=== PATIENT | female | born 1955 | race Caucasian/White ===

== ENCOUNTER 2016-10-05 12:07 | Emergency (ER) | payer MEDICARE, OTHER ==
[~2016-10-05] VITALS: Ht 152.4 cm; Wt 75.0 kg
[2016-10-05 12:11] VITALS: Ht 152.4 cm; Wt 75.0 kg
[2016-10-05] MEDS ORDERED: morphine 2 MG INJ IV ONE (13:00)
[2016-10-05 13:26] LABS: BASOPHIL # 0.1 10^3/ul (0.0-0.1); BASOPHILS % 0.6 % (0.0-2.0); EOSINOPHILS # 0.2 10^3/ul (0.0-0.5); EOSINOPHILS % 2.9 % (0.0-7.0); HEMATOCRIT 30.9 % (37.0-47.0); HEMOGLOBIN 9.4 g/dl (12.0-16.0); LYMPHOCYTES # 1.8 10^3/ul (0.8-2.9); LYMPHOCYTES % 21.7 % (15.0-51.0); MEAN CORPUSCULAR HGB CONC 30.4 g/dl (32.0-37.0); MEAN CORPUSCULAR VOLUME 105.1 fl (82.0-101.0); MEAN PLATELET VOLUME 9.7 fl (7.4-10.4); MONOCYTE # 1.3 10^3/ul (0.3-0.9); MONOCYTES % 15.6 % (0.0-11.0); NEUTROPHIL # 4.8 10^3/ul (1.6-7.5); NEUTROPHILS % 58.8 % (39.0-77.0); PLATELET COUNT 200 10^3/UL (140-415); RED BLOOD COUNT 2.94 10^6/ul (4.20-5.40); RED CELL DISTRIBUTION WIDTH 16.5 % (11.5-14.5); WHITE BLOOD COUNT 8.2 10^3/ul (4.8-10.8)
[2016-10-05 13:49] LABS: ALBUMIN 4.5 g/dl (3.3-4.9); ALBUMIN/GLOBULIN RATIO 1.36; CREATININE 2.82 mg/dl (0.44-1.00); POTASSIUM 4.9 mmol/L (3.5-5.1); TOTAL PROTEIN 7.8 g/dl (6.1-8.1)
[2016-10-05] MEDS ORDERED: ACET650S13 RC (14:01)
[2016-10-05] MEDS ORDERED: BISA10SU75 PR (14:02)
[2016-10-05] MEDS ORDERED: MENT71OI TP (14:03)
[2016-10-05] MEDS ORDERED: DOCU-159 PO (14:04)
[2016-10-05] MEDS ORDERED: CHLO473M4 MM (14:04)
[2016-10-05] MEDS ORDERED: IPRA3AMP INHALATION ×2 (14:05)
[2016-10-05] MEDS ORDERED: DULO20CA17 PO (14:05)
[2016-10-05] MEDS ORDERED: FLUT16SP17 NASAL (14:06)
[2016-10-05] MEDS ORDERED: HALO5AMP3 IJ (14:07)
[2016-10-05] MEDS ORDERED: HEPA500021 IJ (14:08)
[2016-10-05] MEDS ORDERED: HYDR-3670 PO (14:09)
[2016-10-05] MEDS ORDERED: INSU100C SQ (14:11)
[2016-10-05] MEDS ORDERED: LACT1CAP57 PO (14:14)
[2016-10-05] MEDS ORDERED: LACT20SO2 PO (14:16)
[2016-10-05] MEDS ORDERED: LORA0.5T PO (14:17)
[2016-10-05] MEDS ORDERED: MAGN400O4 PO (14:17)
[2016-10-05] MEDS ORDERED: METO5TAB58 PO ×2 (14:18)
[2016-10-05] MEDS ORDERED: MIDO10TA PO (14:20)
[2016-10-05] MEDS ORDERED: POLY17PO6 PO (14:20)
[2016-10-05] MEDS ORDERED: HYDR-905 PO ×2 (14:21→14:23)
[2016-10-05] MEDS ORDERED: ONDA4TAB8 PO (14:23)
[2016-10-05] MEDS ORDERED: PANT40TA3 PO (14:24)
[2016-10-05] MEDS ORDERED: PHEN177S43 MT (14:25)
[2016-10-05] MEDS ORDERED: QUET50TA22 PO (14:25)
[2016-10-05] MEDS ORDERED: SEVE800T10 PO (14:26)
--- NOTE | 2016-10-05 14:28 | RADRPT ---
PROCEDURE: CT abdomen and pelvis without contrast. CLINICAL INDICATION: Necrotizing pancreatitis with history of drainage catheter placement, which was inadvertently remove d today. TECHNIQUE: CT of the abdomen and pelvis without contrast was performed on a multidetector high-resolution CT [facility]. Coronal and sagittal reformatted images were obtained from the axial source images. Images we re reviewed on a high-resolution PACS workstation. The total exam CTDI equals 18.72 mGy and the tota l exam DLP equals 959.21 mGy-cm. One or more of the following dose reduction techniques were used: - Automated exposure control. - Adjustment of the mA and/or kV according to patient size. - Use of iterative reconstruction technique. COMPARISON: None available. FINDINGS: Visualized lower thorax: There are small bilateral pleural effusions and there is interlobular septal thickening and patchy g round-glass opacity within the visualized lung bases. There are coronary artery calcifications. The visualized heart is otherwise unremarkable. Hepatobiliary system and spleen: The liver is grossly unremarkable. There is mild prominence of the intra and extrahepatic biliary tr ee, likely related to reservoir effect given the surgical absence of the gallbladder. The spleen is grossly unremarkable. There is a tract containing air extending from the skin surface to a small co llection measuring 2.7 cm that is contiguous with the pancreatic body, consistent with a small resid ual peripancreatic collection. There is inflammatory change within the upper abdomen with a small a mount of fluid tracking along the left upper anterior pararenal space and a small amount of scattere d fluid elsewhere throughout the upper abdomen. Adrenal glands and genitourinary system: The adrenal glands are grossly unremarkable. There are end-stage [place] bilateral kidneys. The urina ry bladder is grossly unremarkable. The uterus and adnexa are grossly unremarkable. Gastrointestinal system: There is diverticulosis of the transverse colon. There is no bowel wall thickening or evidence of o bstruction. The appendix is in the right lower quadrant and is unremarkable. Peritoneum, vascular, and lymphatics: There is heterogeneous partially calcified intermediate density in the left lower quadrant, consiste nt with a failed renal transplant. There is no mesenteric or retroperitoneal adenopathy. There are a therosclerotic changes of the aorta, which is nonaneurysmal. Musculoskeletal system: There is mild to moderate multilevel degenerative spondylosis. There are no concerning osseous lesio ns. IMPRESSION: 1. Findings of resolving pancreatitis with a tract extending from the skin surface to a collection at the pancreatic body measuring 2.6 cm, consistent with a residual collection and tract from prior drainage catheter placement. The collection is currently too small for drainage catheter reinsertio n. Small amount of scattered fluid elsewhere throughout the upper abdomen with no additional focal d rainable collection. 2. End-stage [place] kidneys and fat left lower quadrant renal transplant. 3. Small bilateral pleural effusions with nonspecific interlobular septal thickening and patchy marie und-glass opacity within both visualized lungs, which may reflect pulmonary edema. 4. Coronary artery calcifications and atherosclerotic changes of the aorta. 5. Colonic diverticulosis. These findings discussed with Dr. Shanks in the ED at 1421 hours on 10/05/2016. RPTAT: EE .Juan C Garcia MD, Date Time Electronically viewed and signed by .Juan C Garcia MD, MD on 10/05/2016 14:28 .P/
[2016-10-05] MEDS ORDERED: morphine 10 MG INJ IV ONE (17:00)
[2016-10-05] MEDS ORDERED: ONDANSETRON 4 MG INJ IV STA (17:01)
[2016-10-05] MEDS ORDERED: SOD CHLORIDE 0.9% 500 ML IV ONE (18:00)
[2016-10-05] MEDS ORDERED: OXYC-279 PO (18:48)
--- NOTE | 2016-10-05 19:22 | ERD ---
ER Documentation Chief Complaint Date/Time DATE: 10/05/16 TIME: 19:14 Chief Complaint SENT FROM SNF FOR EVAL OF CHOLESTEECTOMY DRAINAGE TUBE HPI This 61-year-old female sent for residential facility when her pancreatic drainage tube was accidentally dislodged. She has had this tube in place for weeks. She believes that it was scheduled to be taken out next week. She does have upper abdominal pain which she said she has had for some time that is not exacerbated today. She denies nausea and vomiting. She has no diarrhea. She has had no recent fever chills. There has been no other drainage from the site since the tube was removed. ROS All systems reviewed and are negative except as per history of present illness. Medications Home Meds Active Scripts Oxycodone HCl/Acetaminophen (Percocet 5-325 mg Tablet) 1 Each Tablet, 1 EACH PO Q6, #12 TAB Prov:LETICIA HERNANDEZ DO 10/05/16 Reported Medications Sevelamer Hcl* (Renagel*) 800 Mg Tablet, 800 MG PO WITH MEALS, TAB 10/05/16 Quetiapine Fumarate* (Quetiapine Fumarate*) 50 Mg Tablet, 50 MG PO HS, TAB 10/05/16 Phenol* (Chloraseptic* [place]) 177 Ml [place].pump, 1 SPRAY MT Q8 Y for SORE THROAT , BOTTLE 10/05/16 Pantoprazole* (Protonix*) 40 Mg Tablet.dr, 40 MG PO BID, TAB 10/05/16 Ondansetron Hcl* (Zofran*) 4 Mg Tablet, 4 MG PO Q4 Y for NAUSEA AND OR VOMITING , TAB 10/05/16 Hydrocodone/Acetaminophen ([place] 7.5-325 Tablet) 1 Each Tablet, 2 EACH PO Q6 Y for PAIN LEVEL 7-10, TAB 10/05/16 Hydrocodone/Acetaminophen ([place] 7.5-325 Tablet) 1 Each Tablet, 1 EACH PO Q4 Y for PAIN LEVEL 4-6, TAB 10/05/16 Polyethylene Glycol* (Miralax*) 17 Gm Powd.pack, 17 GM PO DAILY, #30 PACKET 10/05/16 Midodrine* (Midodrine*) 10 Mg Tablet, 10 MG PO Q8 Y for HYPOTENSION, TAB HOLD IF SBP >140 10/05/16 Metoclopramide* (Reglan*) 5 Mg Tablet, 5 MG PO AC MEALS AND BEDTIME Y for NAUSEA AND/OR VOMITING, TAB 10/05/16 Metoclopramide* (Reglan*) 5 Mg Tablet, 5 MG PO AC MEALS, TAB 10/05/16 Magnesium Hydroxide* (Milk Of Magnesia*) 400 Mg/5 Ml Oral.susp, 30 ML PO Q4 Y for GASTROINTESTINAL UPSET, ML 10/05/16 Lorazepam* (Lorazepam*) 0.5 Mg Tablet, 0.5 MG PO Q4H WHILE AWAKE Y for ANXIETY, TAB 10/05/16 Lactulose* (Lactulose*) 20 Gm/30 Ml Solution, 20 GM PO DAILY for CONSTIPATION, ML 10/05/16 Lactobacillus Rhamnosus* (Culturelle*) 1 Each Cap.sprink, 1 CAP PO DAILY, CAP 10/05/16 Insulin Lispro (Humalog) 100 Unit/1 Ml Cartridge, 0 SQ AC MEALS AND BEDTIME 61-149 = 0 UNITS 150-200 = 2 UNITS 201-250 = 4 UNITS 251-300 = 6 UNITS 301-350 = 8 UNITS 351-400 = 10 UNITS 401-450 = 12 UNITS IF BLOOD SUGAR ABOVE 450 NOTIFY 10/05/16 Hydralazine Hcl* (Hydralazine Hcl*) 10 Mg Tablet, 10 MG PO Q6H Y for ELEVATED BLOOD PRESSURE, #60 TAB SBP>160 10/05/16 Heparin Sodium,Porcine/Pf (HEPARIN SOD 5,000 UNIT/ 0.5 ML) 5,000 Unit/0.5 Ml Vial, 5000 UNIT IJ Q8, VIAL 10/05/16 Haloperidol Lactate (Haldol) 5 Mg/1 Ml Ampul, 2.5 MG IJ Q6 Y for AGGRESSIVE BEHAVIOR 10/05/16 Fluticasone Propionate* (Fluticasone Propionate* Nasal) 50 Mcg/[place] - 16 Gm [place].susp, 1 SPRAY NASAL BID, #1 BOTTLE TO EACH NOSTRIL 10/05/16 Ipratropium-Albuterol (Ipratropium-Albuterol) 0.5-3 Mg/3 Ml Ampul.neb, 3 ML INHALATION Q2HWA, #30 VIAL 10/05/16 Ipratropium-Albuterol (Ipratropium-Albuterol) 0.5-3 Mg/3 Ml Ampul.neb, 3 ML INHALATION Q6, #30 VIAL 10/05/16 Duloxetine Hcl* (Duloxetine Hcl*) 20 Mg Capsule.dr, 20 MG PO DAILY, #30 CAP 10/05/16 Docusate Sodium* (Docusate Sodium*) 100 Mg Capsule, 100 MG PO BID, #60 CAP 10/05/16 Chlorhexidine Gluconate (Peridex) 473 Ml Mouthwash, 10 ML MM DAILY, BOTTLE 10/05/16 Menthol/Zinc Oxide (Calmoseptine Ointment) 71 Gm Oint..gm., 1 APPLIC TP Q8, #1 TUB 10/05/16 Bisacodyl* (Bisacodyl*) 10 Mg Supp, 10 MG AR Q12 Y for CONSTIPATION, SUPP 10/05/16 Acetaminophen (Acetaminophen) 650 Mg Supp.rect, 650 MG RC Q6 Y for PAIN AND OR ELEVATED TEMP, SUPP.RECT PAIN LEVEL 1-3 10/05/16 Allergies Allergies: Coded Allergies: No Known Allergy (Unverified , 10/05/16) PMhx/Soc History of Surgery: Yes (cholecystectomy) Anesthesia Reaction: No Hx Neurological Disorder: No Hx Respiratory Disorders: No Hx Cardiac Disorders: No Hx Psychiatric Problems: No Hx Miscellaneous Medical Probl: No Hx Alcohol Use: No Hx Substance Use: No Hx Tobacco Use: No Smoking Status: Never smoker Physical Exam Vitals Vital Signs Date Time Temp Pulse Resp B/P Pulse Ox O2 Delivery O2 Flow Rate FiO2 10/05/16 18:07 69 20 149/67 99 Nasal Cannula 2.0 10/05/16 16:02 74 20 164/81 100 Nasal Cannula 2.0 10/05/16 12:11 97.9 79 18 169/79 99 Physical Exam Const: [] No distress, comfortable in bed peer Head: Atraumatic Eyes: Normal Conjunctiva ENT: Normal External Ears, Nose and Mouth. Neck: Full range of motion..~ No meningismus. Resp: Clear to auscultation bilaterally Cardio: Regular rate and rhythm, no murmurs Abd: Soft, non tender, non distended. Normal bowel sounds Skin: No petechiae or rashes Back: No midline or flank tenderness Ext: No cyanosis, or edema Neur: Awake and alert and oriented 3, no focal deficits Psych: Normal Mood and Affect Result Diagram: 10/05/16 1215 10/05/16 1215 Results 24 hrs Laboratory Tests Test 10/05/16 12:15 10/05/16 14:05 White Blood Count 8.210^3/ul Red Blood Count 2.9410^6/ul Hemoglobin 9.4g/dl Hematocrit 30.9% Mean Corpuscular Volume 105.1fl Mean Corpuscular Hemoglobin 32.0pg Mean Corpuscular Hemoglobin Concent 30.4g/dl Red Cell Distribution Width 16.5% Platelet Count 71629^3/UL Mean Platelet Volume 9.7fl Neutrophils % 58.8% Lymphocytes % 21.7% Monocytes % 15.6% Eosinophils % 2.9% Basophils % 0.6% Nucleated Red Blood Cells % 0.0/100WBC Neutrophils # 4.810^3/ul Lymphocytes # 1.810^3/ul Monocytes # 1.310^3/ul Eosinophils # 0.210^3/ul Basophils # 0.110^3/ul Nucleated Red Blood Cells # 0.010^3/ul Sodium Level 138mmol/L Potassium Level 4.9mmol/L Chloride Level 95mmol/L Carbon Dioxide Level 32mmol/L Anion Gap 16 Blood Urea Nitrogen 18mg/dl Creatinine 2.82mg/dl Glucose Level 97mg/dl Calcium Level 11.0mg/dl Total Bilirubin 0.0mg/dl Direct Bilirubin 0.00mg/dl Indirect Bilirubin 0.0mg/dl Aspartate Amino Transf (AST/SGOT) 40IU/L Alanine Aminotransferase (ALT/SGPT) 39IU/L Alkaline Phosphatase 342IU/L Total Protein 7.8g/dl Albumin 4.5g/dl Globulin 3.30g/dl Albumin/Globulin Ratio 1.36 Lipase 55U/L Lactic Acid Level 0.8mmol/L Current Medications Medications (Trade) Dose Ordered Sig/Lisa Route PRN Reason Start Time Stop Time Status Last Admin Dose Admin Morphine Sulfate (morphine) 2 mg ONCE ONCE IV 10/05/16 13:00 10/05/16 13:01 DC 10/05/16 13:14 Morphine Sulfate (morphine) 6 mg ONCE ONCE IV 10/05/16 17:00 10/05/16 17:02 DC 10/05/16 17:14 Ondansetron HCl 4 mg 4 mg ONCE STAT IV 10/05/16 17:01 10/05/16 17:02 DC 10/05/16 17:13 Sodium Chloride (NS) 500 ml @ 500 mls/hr Q1H ONCE IV 10/05/16 18:00 10/05/16 18:59 DC 10/05/16 18:25 Procedures/MDM Pancreatic drainage removal by accident. Currently the site is clean dry and intact with no signs of infection. Patient has abdominal pain that she does not different than her normal abdominal pain. She was given IV morphine and Zofran after which she had no pain whatsoever. She states that she feels like she is in her normal state of health. On CAT scan imaging there is only mild fluid accumulation with an area too small for drainage currently. Attempt was made to contact [facility] [place] [facility] to possibly speak to the physician or physician physician group that had placed the tube. She was also given IV fluids. I am going to have her follow-up with the surgeon who placed the drain. She states that she [facility] has an appointment. I told her to call or to have the residential facility call on Friday to inform him that the tube would come out. No emergent need for re-drainage at this time. Discharging with her few Percocet in case she experiences any more pain CT abdomen pelvis interpretation: Resolving pancreatitis with small fluid collection that is too small to be drained. I see no obstruction, no free air, no fractures. Departure Diagnosis: Primary Impression: Disruption of tissue around surgical drain Additional Impressions: Abdominal pain Renal insufficiency Condition: Stable Patient Instructions: Abdominal Pain, Caring for a Drainage Tube Additional Instructions: Llame al doctor PRINCESS y karen jos EMILIANO PARA DENTRO DE 1-2 GARCIA.Dgale a la secretaria que nosotros le instruimos hacer esta emiliano.Avise o llame si kelley condicin se empeora antes de la emiliano. Regresa aqui si peor o no mejor. LETICIA HERNANDEZ DO Oct 05, 2016 19:22
[2016-10-05 20:25] VITALS: BP 152/74; PULSE 66; RESP 18; TEMP 98.5
== END 2016-10-05 20:25 | disposition home or self-care (01) ==
LOC: E/R 12:07
DX: K91.89 Other postprocedural complications and disorders of digestive system (principal); R10.9 Unspecified abdominal pain; N28.9 Disorder of kidney and ureter, unspecified; Y73.2 Prosthetic and other implants, materials and accessory gastroenterology and urology devices associated with adverse incidents; Z79.01 Long term (current) use of anticoagulants; Z79.4 Long term (current) use of insulin
CPT/HCPCS: 36415; 74176; 80053; 83605; 83690; 85025; 96374; 96375; 96376; 99285; J2270; J2405; J7040